=== PATIENT | male | born 1980 | race Caucasian/White ===

== ENCOUNTER 2019-04-11 20:32 | Emergency (ER) | payer BC, OTHER ==
[~2019-04-11] VITALS: Ht 165.1 cm; Wt 77.1 kg
[2019-04-11 21:29] LABS: BASOPHILS # (AUTO) 0.2 /CMM (0.0-0.2); BASOPHILS % (AUTO) 1.5 % (0.0-2.0); EOSINOPHILS % (AUTO) 1.9 % (0.0-6.0); HEMATOCRIT 45 % (39-51); HEMOGLOBIN 15.8 g/dL (13.5-17.5); LYMPHOCYTES # (AUTO) 2.5 /CMM (0.8-4.8); LYMPHOCYTES % (AUTO) 22.8 % (20.0-44.0); MEAN CORPUSCULAR HGB CONC 35 g/dl (31.0-36.0); MEAN CORPUSCULAR VOLUME 84 fL (80-96); MONOCYTES # (AUTO) 0.8 /CMM (0.1-1.30); MONOCYTES % (AUTO) 7.5 % (2.0-12.0); NEUTROPHILS # (AUTO) 7.3 /CMM (1.8-8.9); NEUTROPHILS % (AUTO) 66.3 % (43.0-81.0); PLATELET COUNT (AUTO) 255 /CMM (150-450); RED BLOOD CELL COUNT(AUTO) 5.43 MIL/uL (4.5-6.0)
[2019-04-11] MEDS ORDERED: KETOROLAC TROMETHAMINE INJ 30 MG/ML VIAL IV ONE (21:30)
[2019-04-11] MEDS ORDERED: ONDANSETRON HCL/PF 4 MG/2 ML VIAL IVP ONE (21:30)
[2019-04-11 21:31] LABS: APPEARANCE,URINE Clear (CLEAR); BILIRUBIN,URINE Negative (NEGATIVE); BLOOD, URINE Negative Ery/uL (NEGATIVE); COLOR,URINE Yellow (YELLOW); KETONES,URINE Negative (NEGATIVE); LEUKOCYTE ESTERASE ,URINE Negative (NEGATIVE); NITRITE, URINE Negative (NEGATIVE); PH,URINE 5.5 (5.0-8.0); PROTEIN,URINE Negative (NEGATIVE); UGLUCOSE Negative (NEGATIVE); UROBILINOGEN,URINE 0.2 EU/dL (0.2)
--- NOTE | 2019-04-11 21:33 | NUR ---
PT CAME TO ER BED 11 C/O RIGHT FLANK PAIN W/ NAUSEA SINCE 1600. PT STATES THAT HE HAD PREVIOUS KIDNEY STONES IN THE PAST. AAOX4. NO SOB. BREATHING EVENLY AND UNLABORED. CONNECTED TO MONITOR.
[2019-04-11 21:44] LABS: ALBUMIN 4.2 g/dL (3.4-5.0); BILIRUBIN,TOTAL 0.2 mg/dL (0.2-1.0); CALCIUM, SERUM 9.9 mg/dL (8.5-10.1); CREATININE 1.3 mg/dL (0.6-1.3); POTASSIUM 4.1 mmol/L (3.5-5.1); TOTAL PROTEIN, SERUM 8.1 g/dL (6.4-8.2)
[2019-04-11] MEDS ORDERED: ONDANSETRON HCL/PF 4 MG/2 ML VIAL ONE (21:51)
[2019-04-11] MEDS ORDERED: KETOROLAC TROMETHAMINE 15 MG/ML VIAL ONE (21:51)
[2019-04-11] MEDS ORDERED: ONDANSETRON 4 MG TAB.RAPDIS ONE (22:12)
[2019-04-11] MEDS ORDERED: ONDANSETRON 4 MG TAB.RAPDIS SL ONE (22:30)
--- NOTE | 2019-04-11 22:34 | NUR ---
Patient discharged to home in stable condition. Written and verbal after care instructions given. Patient verbalizes understanding of instruction. Prescriptions given and explained to the patient. Instructed not to operate behind machinery when taking norco.
[2019-04-11 22:36] VITALS: BP 143/88
== END 2019-04-11 22:39 | disposition home or self-care (01) ==
LOC: ER 20:37
DX: R10.31 Right lower quadrant pain (principal); R10.11 Right upper quadrant pain; I10 Essential (primary) hypertension; M10.9 Gout, unspecified; F17.200 Nicotine dependence, unspecified, uncomplicated; Z87.442 Personal history of urinary calculi; Z88.0 Allergy status to penicillin
CPT/HCPCS: 36415; 80048; 80076; 81001; 83690; 85025; 99283; J2405; Q0162; 81000-TC; J1885

== ENCOUNTER 2023-09-02 17:07 | Emergency (ER) | payer BC ==
[~2023-09-02] VITALS: Ht 165.1 cm; Wt 74.4 kg
[2023-09-02 17:41] VITALS: TEMP 99
[2023-09-02] MEDS ORDERED: KETOROLAC TROMETHAMINE 15 MG/ML VIAL ONE (19:11)
[2023-09-02] MEDS ORDERED: dexaMETHasone SOD PHOSPHATE 1 ML ONE (19:11)
[2023-09-02] MEDS: IV NS 0.9% 1,000 ML BAG IV ONE (19:25)
[2023-09-02] MEDS: KETOROLAC TROMETHAMINE 15 MG/ML VIAL IV ONE (19:26)
[2023-09-02] MEDS: dexaMETHasone SOD PHOSPHATE 4 MG/ML VIAL MC ONE (19:27)
[2023-09-02 19:39] LABS: BASOPHILS # (AUTO) 0.1 K/uL (0.0-0.2); BASOPHILS % (AUTO) 0.5 % (0.0-2.0); EOSINOPHILS # (AUTO) 0.2 K/uL (0.0-0.7); EOSINOPHILS % (AUTO) 1.1 % (0.0-6.0); HEMATOCRIT 40 % (39-51); HEMOGLOBIN 13.6 g/dL (13.5-17.5); LYMPHOCYTES # (AUTO) 1.1 K/uL (0.8-4.8); LYMPHOCYTES % (AUTO) 8.1 % (20.0-44.0); MEAN CORPUSCULAR HEMOGLOBIN 29 PG (26.0-33.0); MEAN CORPUSCULAR HGB CONC 34 g/dl (31.0-36.0); MEAN CORPUSCULAR VOLUME 86 fL (80-96); MONOCYTES # (AUTO) 1.3 K/uL (0.1-1.30); MONOCYTES % (AUTO) 9.2 % (2.0-12.0); NEUTROPHILS # (AUTO) 11.2 K/uL (1.8-8.9); NEUTROPHILS % (AUTO) 81.1 % (43.0-81.0); PLATELET COUNT (AUTO) 217 K/uL (150-450); RED BLOOD CELL COUNT(AUTO) 4.66 MIL/uL (4.5-6.0); RED CELL DISTRIBUTION WIDTH 13.1 % (11.5-15.0); WHITE BLOOD COUNT (AUTO) 13.8 K/uL (4.3-11.0)
[2023-09-02] MEDS ORDERED: IOHEXOL-300 100 ML VIAL IV ONE (19:41)
[2023-09-02] MEDS ORDERED: IV NS 0.9% 250 ML IV ONE (19:42)
[2023-09-02 19:48] LABS: CALCIUM, SERUM 9.8 mg/dL (8.5-10.1); CREATININE 1.1 mg/dL (0.6-1.3); POTASSIUM 3.7 mmol/L (3.5-5.1)
[2023-09-02 19:53] LABS: ALBUMIN 3.3 g/dL (3.4-5.0); BILIRUBIN,TOTAL 0.6 mg/dL (0.2-1.0); TOTAL PROTEIN, SERUM 8.2 g/dL (6.4-8.2)
[2023-09-02] MEDS ORDERED: PRED50TA PO (21:20)
[2023-09-02] MEDS ORDERED: ACET-2605 PO (21:20)
[2023-09-02] MEDS ORDERED: IBUP-1955 PO (21:20)
[2023-09-02] MEDS ORDERED: AZIT500T4 PO (21:20)
[2023-09-02] MEDS ORDERED: AZITHROMYCIN 250 MG TABLET ONE (21:32)
[2023-09-02] MEDS: AZITHROMYCIN 250 MG TABLET PO ONE (21:38)
[2023-09-02 21:41] VITALS: BP 125/87; O2SAT 98
== END 2023-09-02 21:41 | disposition home or self-care (01) ==
LOC: ER 17:26
DX: J03.90 Acute tonsillitis, unspecified (principal); R11.0 Nausea; I10 Essential (primary) hypertension; M10.9 Gout, unspecified; F17.200 Nicotine dependence, unspecified, uncomplicated; Z88.0 Allergy status to penicillin; Z20.822 Contact with and (suspected) exposure to COVID-19
CPT/HCPCS: 99285; 96374; 70491; 96361; 87426; 87804 ×2; 85025; 87070; 36415; 87880; 80053; J1100; J7030; J7050; Q9967; J1885; 86403-TC